=== PATIENT | male | born 1960 | race Two or more races ===

== ENCOUNTER 2023-01-15 11:35 | Emergency (ER) | payer OTHER ==
[~2023-01-15] VITALS: Ht 172.7 cm; Wt 95.3 kg
[2023-01-15] MEDS ORDERED: RITMOL (12:00)
[2023-01-15] MEDS ORDERED: NORVASC10 MG (12:00)
== END 2023-01-15 14:30 | disposition home or self-care (01) ==
LOC: ER 11:35
DX: S93.402A Sprain of unspecified ligament of left ankle, initial encounter (principal); X58.XXXA Exposure to other specified factors, initial encounter; Y93.9 Activity, unspecified; Y92.9 Unspecified place or not applicable; Y99.9 Unspecified external cause status; Z88.6 Allergy status to analgesic agent